=== PATIENT | male | born 1995 | race African-American/Black ===

== ENCOUNTER → 2018-08-10 | Outpatient (CLI) | payer OTHER ==
--- NOTE | 2018-08-10 10:17 | REP ---
LUMBAR SPINE, FIVE VIEWS: HISTORY: Back pain. There is no acute fracture or subluxation. The intervertebral discs are normal in height. The facet joints are normal in appearance. An 11 mm metallic foreign body and several small metallic fragments are present in the posterior paravertebral soft tissue at the L4-5 level. There is loss of the normal lordotic curve. IMPRESSION: There is no acute fracture or subluxation. Electronically Signed by Brendan Atwood MD 08/10/2018 10:20 A
== END ==
LOC: M RAD 09:00
PROVIDERS: ATTEND Surgery
DX: Z18.10 Retained metal fragments, unspecified (principal); M54.5 Low back pain